=== PATIENT | female | born 1995 | race Caucasian/White ===

== ENCOUNTER 2021-01-11 13:53 | Outpatient (CLI) | payer OTHER | END 2021-01-11 13:54 | disposition critical access hospital (66) | LOC: EMS 13:53 | DX: O99.893 Other specified diseases and conditions complicating puerperium (principal); R55 Syncope and collapse | CPT/HCPCS: A0425; A0427 ==

== ENCOUNTER 2021-01-11 14:26 | Outpatient (CLI) | payer OTHER ==
[2021-01-11 14:39] VITALS: BP 123/78
--- NOTE | 2021-01-11 16:17 | PROVIDER PROGRESS NOTE ---
- HPI Chief Complaint: Other (Sycopal episode at work, three episodes today, third one she laid on floor.) Current : Vital Signs Temperature 98.4 F 01/11/21 14:37 Heart Rate 96 01/11/21 14:37 Respiratory Rate 20 01/11/21 14:37 Blood Pressure 123/78 01/11/21 14:37 O2 Saturation 100 01/11/21 14:37 Temperature 98.4 F 01/11/21 14:37 Heart Rate 96 01/11/21 14:37 Respiratory Rate 20 01/11/21 14:37 Blood Pressure 123/78 01/11/21 14:37 O2 Saturation 100 01/11/21 14:37 25 yo at 30 weeks, just moved here from [place]. Patient has history of syncopal episodes with Panic attacks, but did not have a panic attack today. Patient brought to hospital for evaluation by ambulance. Patient did not have a lot of food today, but her glucose check was 100 reported by paramedics. Patient reports good movement. Patient denies contractions. Patient de nies vaginal bleeding or SROM. Patient is scheduled to see OB at [facility] on Friday01/15/2021. Patient states her blood work was checked prior to leaving [place] and she was not anemic or diabetic. Monitor strip: Baseline 130 with moderate variability and Accelerations of 15X15. No contractions seen. Category I monitor strip. General: Patient is resting in stretcher without evidence of distress Chest: Clear to asucultatio. No rales, wheezes , or rhochi. Heart: RRR without murmur or gallop Abdomen: Soft, non-tender, good bowel sounds, Gravid, non-tender to palpation. Extremities: No edema, no calf tenderness Neuro: Alert and oriented times three. A: Syncopal episode IUP 30 week P-Discharge to home. Try to drink 64oz of water a day. Off work until she see OB clinic on Monday 01/15. Call for any problems, Keep snacks with her. Follow- up on Friday as scheduled.
== END 2021-01-11 16:15 | disposition home or self-care (01) ==
LOC: WFO 14:26 → FBP 14:35 → WFO 16:15
PROVIDERS: ATTEND Obstetrics & Gynecology
DX: O99.891 Other specified diseases and conditions complicating pregnancy (principal); R55 Syncope and collapse; Z3A.30 30 weeks gestation of pregnancy
CPT/HCPCS: 99213; 99215

== ENCOUNTER 2021-01-24 09:11 | Outpatient (CLI) | payer OTHER ==
[2021-01-24 09:17] VITALS: BP 116/80
[2021-01-24] MEDS ORDERED: LACTATED RINGERS 1,000 ML IV ONE (09:31)
[2021-01-24] MEDS ORDERED: ONDANSETRON 4 MG/2 ML VIAL IVP ONE (10:00)
--- NOTE | 2021-01-24 11:08 | HISTORY & PHYSICAL EXAMINATION ---
History and Physical - History and Physical Identification: Patient is a 25-year-old G2, P1 female who is currently 30 weeks EGA. Chief complaint passing out at work History of present illness: The patient states while at work today she developed lightheadedness lay down and then passed out. She was transported here via ambulance. She states she is eating a regular breakfast this morning her blood sugar in the ambulance was 127. She has had several episodes of being lightheaded and has been seen here in the hospital once before for a syncopal episode. She is currently been under the care of the SMUDGER physicians at our hospital. Past medical history is positive for preeclampsia with her last . Physical examination: Patient well-developed well-nourished white female she is in no acute distress at this time. She is currently have roughly half a liter of LR IV at this time. Pupils equal round extraocular muscle intact t hyroid not palpable enlarged Heart regular rate and rhythm Lung [place] clear without rales or wheezes Abdomen soft nontender gravid. Impression 25-year-old G2, P1 female at 30 weeks EGA with recurrent syncopal episodes. Giving her IV fluids. She is appointment to see her SMUDGER doctor on Friday. She is told she must maintain this appointment. I have given her the rest the day off.
--- NOTE | 2021-01-24 20:20 | PROCEDURE REPORT ---
- HPI Diagnosis/Indication for NST: Other (Syncopal episode at work.) Current EDU 03/23/21 Gestation 31 Weeks and 5 Days 2 Para 1 Vital Signs Temperature 36.8 C 01/24/21 09:17 Heart Rate 95 01/24/21 09:17 Respiratory Rate 20 01/24/21 09:17 Blood Pressure 116/80 01/24/21 09:17 O2 Saturation 100 01/24/21 09:17 Temperature 36.8 C 01/24/21 09:17 Heart Rate 95 01/24/21 09:17 Respiratory Rate 20 01/24/21 09:17 Blood Pressure 116/80 01/24/21 09:17 O2 Saturation 100 01/24/21 09:17 Patient was at work today when she became lightheaded lay down before she passed out did not impact anything. She was brought by ambulance here for evaluation. She has had previous episodes in the past. She is currently under care of the EDUCATION DEPARTMENT CHAIR physicians at [facility] - NST Procedure NST Procedure Start Date 01/24/21 Start Time 09:15 Stop Time 10:35 Vibroacoustic Stimulation Used No Patient States Movement Yes - Results and Plan Findings/Impression: Baseline was 125. She showed excellent accelerations she had good beat to beat variability she had no decelerations. She had no contractions noted throughout the entire tracing. Date of service was 01/24/2021 Plan: Will have patient hydrate. We will also have her keep her appointment with her EDUCATION DEPARTMENT CHAIR physician on Friday.
== END 2021-01-24 10:56 | disposition home or self-care (01) ==
LOC: WFO 09:11 → FBP 09:12 → WFO 10:56
PROVIDERS: ATTEND Obstetrics & Gynecology
DX: O99.891 Other specified diseases and conditions complicating pregnancy (principal); R55 Syncope and collapse; Z3A.30 30 weeks gestation of pregnancy
CPT/HCPCS: 59025; 96361; 96374; 99215; J7120; 99213

== ENCOUNTER 2021-02-06 10:02 | Outpatient (CLI) | payer OTHER | END 2021-02-06 10:03 | disposition short-term general hospital (02) | LOC: EMS 10:02 | DX: O26.893 Other specified pregnancy related conditions, third trimester (principal); R07.9 Chest pain, unspecified; R55 Syncope and collapse; Z3A.34 34 weeks gestation of pregnancy | CPT/HCPCS: A0425; A0427 ==

== ENCOUNTER 2021-08-24 09:15 | Emergency (ER) | payer OTHER ==
[2021-08-24 09:38] VITALS: BP 113/68
--- NOTE | 2021-08-24 09:41 | ED Physician Documentation ---
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 She presents to the emergency department with a chief complaint of panic attack. She has not been on medication for this previously she does see a counselor. She indicates the stressors in her life right now are that she has a new 6-month-old baby and a 2-year-old that she is taking care of at home while her is away on deployment. She does not have additional help. She continues to work. Review of Systems Constitutional: denies: Fever Eyes: denies: Decreased vision Ears: denies: Ear pain Nose: denies: Congestion Throat: denies: Sore throat Cardiac: reports: Palpitations. denies: Chest pain / pressure Respiratory: reports: Dyspnea. denies: Cough GI: reports: Nausea. denies: Abdominal Pain, Vomiting : denies: Dysuria, Frequency Skin: denies: Rash Musculoskeletal: denies: Neck pain, Back pain, Extremity pain Neurologic: denies: Generalized weakness, Focal weakness, Numbness Psychiatric: reports: Depressed, Anxiety PD PAST MEDICAL HISTORY - Past Medical History Past Medical History: No Psych: Anxiety - Past Surgical History Past Surgical History: No - Present Medications Home Medications: Ambulatory Orders Medication Instructions Recorded Confirmed hydrOXYzine pamoate [Hydroxyzine 25 mg PO Q6HR PRN #14 cap 08/24/21 Pamoate] - Allergies Allergies/Adverse Reactions: Allergies Allergy/AdvReac Type Severity Reaction Status Date / Time No Known Drug Allergies Allergy Verified 08/24/21 09:27 - Social History Does the pt smoke?: No Smoking Status: Never smoker Does the pt drink ETOH?: No Does the pt have substance abuse?: No - Immunizations Immunizations are current?: Yes PD ED PE NORMAL - Vitals Vital signs reviewed: Yes (Hypertensive) - General General: Alert and oriented X 3, Well developed/nourished, Other (Appears anxious) - HEENT HEENT: Atraumatic, PERRL, EOMI - Neck Neck: Supple, no meningeal sign, No bony TTP - Cardiac Cardiac: RRR, No murmur - Respiratory Respiratory: No respiratory distress, Clear bilaterally - Abdomen Abdomen: Normal bowel sounds, Soft, Non tender, Non distended, No organomegaly - Back Back: No CVA TTP, No spinal TTP - Derm Derm: Normal color, Warm and dry, No rash - Extremities Extremities: No deformity, No edema - Neuro Neuro: Alert and oriented X 3, order booker 2-12 intact, No motor deficit, No sensory def icit, Normal speech Eye Opening: Spontaneous Motor: Obeys Commands Verbal: Oriented GCS Score: 15 - Psych Psych: Normal mood, Normal affect Results - Vitals Vitals: Vital Signs - 24 hr 08/24/21 08/24/21 09:18 09:35 Temperature 36.2 C L Heart Rate 73 66 Respiratory 24 20 Rate Blood Pressure 134/89 H 113/68 O2 Saturation 100 100 Oxygen O2 Source Room air - Labs Labs: Laboratory Tests 08/24/21 08/24/21 08/24/21 10:11 10:25 10:25 WBC 5.1 RBC 4.85 Hgb 13.5 Hct 40.8 MCV 84.1 MCH 27.8 MCHC 33.1 RDW 13.5 Plt Count 259 MPV 10.2 Neut # (Auto) 3.0 Lymph # (Auto) 1.7 [place] # (Auto) 0.3 Eos # (Auto) 0.1 Baso # (Auto) 0.0 Absolute Nucleated RBC 0.00 Nucleated RBC % 0.0 Sodium 136 Potassium 3.9 Chloride 102 Carbon Dioxide 26 Anion Gap 8.0 BUN 9 Creatinine 0.6 Estimated GFR (MDRD) 122 Glucose 96 Calcium 8.7 Total Bilirubin 0.3 AST 13 ALT 15 Alkaline Phosphatase 63 Total Protein 7.2 Albumin 4.1 Globulin 3.1 Albumin/Globulin Ratio 1.3 Lipase 27 Urine Color YELLOW Urine Clarity CLEAR Urine pH 7.0 Ur Specific [place] 1.015 Urine Protein NEGATIVE Urine Glucose (UA) NEGATIVE Urine Ketones NEGATIVE Urine Occult Blood MODERATE H Urine Nitrite NEGATIVE Urine Bilirubin NEGATIVE Urine Urobilinogen 0.2 (NORMAL) Ur Leukocyte Esterase TRACE H Urine RBC 0-5 Urine WBC 4-5 Ur Squamous Epith Cells MOD Squamous H Urine Bacteria Few Ur Microscopic Review INDICATED Urine Culture Comments NOT INDICATED Urine HCG, Qual NEGATIVE Urine Opiates Screen NEGATIVE Ur Oxycodone Screen NEGATIVE Urine Methadone Screen NEGATIVE Ur Propoxyphene Screen NEGATIVE Ur Barbiturates Screen NEGATIVE Ur Tricyclics Screen NEGATIVE Ur Phencyclidine Scrn NEGATIVE Ur Amphetamine Screen NEGATIVE U Methamphetamines Scrn NEGATIVE U Benzodiazepines Scrn NEGATIVE Urine Cocaine Screen NEGATIVE U Cannabinoids Screen NEGATIVE Ethyl Alcohol < 5.0 PD MEDICAL DECISION MAKING - ED course Complexity details: reviewed results, re-evaluated patient, considered differential, d/w patient ED course: 26-year-old female history of panic attack reports to the emergency department with panic attack today and she is breast-feeding. She does take my offer for hydroxyzine and this appears to be effective. I have offered her hydroxyzine to be taken sparingly as it is possible to cause sedation and a breast-feeding . I discussed this with the patient and she appears confident she will be able to do this. Departure - Departure Disposition: 01 Home, Self Care Clinical Impression: Panic attack, Anxiety attack Condition: Stable Instructions: ED Stress React, ED Panic Attack Follow-Up: [facility] [Provider Group] Prescriptions: hydrOXYzine pamoate [Hydroxyzine Pamoate] 25 mg PO Q6HR PRN #14 cap PRN Reason: panic attack Comments: Nasreen, today it looks like you had a panic attack and these can be very uncomfortable. In the future if you feel a panic attack is coming on you can take some of this hydroxyzine and potentially overt this. Use this medicine sparingly as it is not recommended for breast-feeding as it can cause some sedation. At the dose you are using this should be minimal. Follow-up with your counselor as previously planned. The hydroxyzine has been e-scribed to [facility] in [place]. Forms: Activity restrictions Discharge Date/Time: 08/24/21 11:41
[2021-08-24] MEDS ORDERED: hydrOXYzine PAMOATE 25 MG CAPSULE PO STA (10:02)
[2021-08-24 10:20] LABS: MUDS CUTOFF CONCENTRATIONS CUTOFF CONC BELOW:
[2021-08-24 10:25] LABS: BILIRUBIN,URINE NEGATIVE (NEGATIVE); GLUCOSE, URINE (UA) NEGATIVE (NEGATIVE); KETONES,URINE (UA) NEGATIVE (NEGATIVE); LEUKOCYTE ESTERASE, URINE TRACE (NEGATIVE); NITRITE,URINE NEGATIVE (NEGATIVE); OCCULT BLOOD,URINE MODERATE (NEGATIVE); PROTEIN,URINE NEGATIVE (NEGATIVE); UROBILINOGEN,URINE 0.2 (NORMAL) E.U./dL (NORMAL)
[2021-08-24 10:28] LABS: HCG UR QUAL NEGATIVE
[2021-08-24 10:30] LABS: BASOPHILS % (AUTO) 0.6 %; EOSINOPHILS # (AUTO) 0.1 10^3/uL (0.0-0.7); HCT - HEMATOCRIT 40.8 % (37.0-47.0); HGB - HEMOGLOBIN 13.5 g/dL (12.0-16.0); LYMPHOCYTES # (AUTO) 1.7 10^3/uL (1.5-3.5); LYMPHOCYTES % (AUTO) 33.7 %; MEAN CORPUSCULAR HEMOGLOBIN 27.8 pg (27.0-31.0); MEAN CORPUSCULAR HGB CONC 33.1 g/dL (32.0-36.0); MEAN CORPUSCULAR VOLUME 84.1 fL (81.0-99.0); MEAN PLATELET VOLUME 10.2 fL (7.9-10.8); MONOCYTES # (AUTO) 0.3 10^3/uL (0.0-1.0); MONOCYTES % (AUTO) 5.8 %; NEUTROPHILS % (AUTO) 58.7 %; PLT - PLATELET COUNT 259 10^3/uL (130-450); RED BLOOD COUNT 4.85 10^6/uL (4.20-5.40); RED CELL DISTRIBUTION WIDTH 13.5 % (12.0-15.0); WHITE BLOOD COUNT 5.1 x10^3/uL (4.8-10.8)
[2021-08-24 10:39] LABS: CLARITY,URINE CLEAR (CLEAR)
[2021-08-24 10:40] LABS: BACTERIA,URINE Few /HPF (None Seen); RBC,URINE 0-5 /HPF (0-5); SQUAMOUS EPITHELIAL CELL,UR MOD Squamous (<= Few)
[2021-08-24 10:41] LABS: AMPHETAMINE SCREEN,URINE NEGATIVE (NEGATIVE); BARBITURATE SCREEN,UR NEGATIVE (NEGATIVE); BENZODIAZEPINES SCREEN, URINE NEGATIVE (NEGATIVE); COCAINE SCREEN URINE NEGATIVE (NEGATIVE); METHADONE SCREEN, URINE NEGATIVE (NEGATIVE); METHAMPHETAMINES SCREEN, URINE NEGATIVE (NEGATIVE); OPIATE SCREEN, URINE NEGATIVE (NEGATIVE); OXYCODONE SCREEN, URINE NEGATIVE (NEGATIVE); PROPOXYPHENE SCREEN, URINE NEGATIVE (NEGATIVE); THC CANNABINOID SCREEN, URINE NEGATIVE (NEGATIVE); TRICYCLIC ANTIDEPRESSANT,URINE NEGATIVE (NEGATIVE)
[2021-08-24 10:51] LABS: ALBUMIN 4.1 g/dL (3.2-5.5); ALBUMIN/GLOBULIN RATIO 1.3 (1.0-2.2); ALKALINE PHOSPHATASE 63 IU/L (42-121); ALT ALANINE AMINOTRANSFERASE 15 IU/L (10-60); AST ASPARTATE AMINOTRANSFERASE 13 IU/L (10-42); BILIRUBIN,TOTAL 0.3 mg/dL (0.2-1.0); BUN - BLOOD UREA NITROGEN 9 mg/dL (6-20); CALCIUM 8.7 mg/dL (8.5-10.3); CARBON DIOXIDE - CO2 26 mmol/L (21-32); CHLORIDE 102 mmol/L (101-111); CREATININE 0.6 mg/dL (0.4-1.0); ETOH - ETHANOL < 5.0 mg/dL; GFR - MDRD 122 (>89); GLUCOSE 96 mg/dL (70-100); LIPASE 27 U/L (22-51); POTASSIUM 3.9 mmol/L (3.5-5.0); SODIUM 136 mmol/L (135-145); TOTAL PROTEIN 7.2 g/dL (6.7-8.2)
== END 2021-08-24 11:41 | disposition home or self-care (01) ==
LOC: EDUNIT# → ED 09:15
DX: F41.0 Panic disorder [episodic paroxysmal anxiety] (principal)
CPT/HCPCS: 36415; 80053; 80306; 80320; 81001; 81025; 83690; 85025; 99283; 99284; A9270; 81003; 87086

== ENCOUNTER 2021-09-12 08:56 | Emergency (ER) | payer OTHER ==
[2021-09-12 09:22] LABS: GLUCOSE, URINE (UA) NEGATIVE (NEGATIVE); KETONES,URINE (UA) 40 mg/dL (NEGATIVE); LEUKOCYTE ESTERASE, URINE NEGATIVE (NEGATIVE); NITRITE,URINE NEGATIVE (NEGATIVE); OCCULT BLOOD,URINE SMALL (NEGATIVE); PH,URINE 5.5 PH (5.0-7.5); PROTEIN,URINE 30 mg/dL (NEGATIVE); UROBILINOGEN,URINE 0.2 (NORMAL) E.U./dL (NORMAL)
[2021-09-12 09:25] LABS: CLARITY,URINE CLEAR (CLEAR)
[2021-09-12] MEDS ORDERED: KETOROLAC 30 MG/ML VIAL IVP STA (09:27)
[2021-09-12] MEDS ORDERED: SODIUM CHLORIDE 0.9% 1,000 ML IV STA (09:27)
[2021-09-12 09:28] LABS: BILIRUBIN,URINE NEGATIVE (NEGATIVE); HCG UR QUAL NEGATIVE; ICTOTEST,URINE NEGATIVE
--- NOTE | 2021-09-12 09:32 | ED Physician Documentation ---
PD HPI ABD PAIN - Stated complaint Stated Complaint: L SIDE PX/FEVER - Chief complaint Chief Complaint: Abd Pain - History obtained from History obtained from: Patient - Additional information Additional information: Patient comes to the emergency department chief complaint of left sided abdominal pain and fever since yesterday. Patient states that she was doing fine the day before yesterday but then began to develop pain in her left upper quadrant throughout the course of the day. She then discovered that she had a fever of 103. She denies any back pain. No vomiting though she did have some nausea with the fever. No diarrhea. No sore throat, cough, or shortness of breath. She does have some pain under her ribs with deep breaths. No blood in her urine. She states she is otherwise healthy. No sick contacts. She states that she does feel lightheaded when she gets up. She has been drinking plenty of water, she thinks, including 2 cups already today. She does feel chilled right now states she has not been able to get warm all morning. No other complaints at this time. Review of Systems Ten Systems: 10 systems reviewed and negative Constitutional: reports: Fever, Chills Eyes: reports: Reviewed and negative Ears: reports: Reviewed and negative Nose: reports: Reviewed and negative Throat: reports: Reviewed and negative Cardiac: reports: Reviewed and negative Respiratory: reports: Reviewed and negative GI: reports: Abdominal Pain, Nausea. 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 : None HEENT: None Psych: Depression, Anxiety Musculoskeletal: None Derm: None - Past Surgical History Past Surgical History: No - Present Medications Home Medications: Ambulatory Orders Medication Instructions Recorded Confirmed hydrOXYzine pamoate [Hydroxyzine 25 mg PO Q6HR PRN #14 cap 08/24/21 09/12/21 Pamoate] HYDROcod/ACETAM 5/325 [[place]ron[place] 5/325] 1 - 2 tablet PO Q6H PRN #14 tablet 09/12/21 Ondansetron Odt [Zofran] 4 mg TL Q6H PRN #10 tablet 09/12/21 levoFLOXacin [Levaquin] 500 mg PO DAILY #10 tablet 09/12/21 metroNIDAZOLE [Flagyl] 500 mg PO BID 10 Days #20 tablet 09/12/21 - Allergies Allergies/Adverse Reactions: Allergies Allergy/AdvReac Type Severity Reaction Status Date / Time No Known Drug Allergies Allergy Verified 09/12/21 08:59 - Social History Does the pt smoke?: No Smoking Status: Never smoker Does the pt drink ETOH?: No Does the pt have substance abuse?: No - Immunizations Immunizations are current?: Yes PD ED PE NORMAL - Vitals Vital signs reviewed: Yes - General General: Alert and oriented X 3, No acute distress, Well developed/nourished - HEENT HEENT: Atraumatic, PERRL, EOMI, Moist mucous membranes - Neck Neck: Supple, no meningeal sign - Cardiac Cardiac: No murmur, Strong equal pulses, Other (Tachycardic in the 110's, regular rhythm, no murmurs.) - Respiratory Respiratory: No respiratory distress, Clear bilaterally - Abdomen Abdomen: Soft, Non distended, Other (Marked left upper and lower quadrant tenderness. No rebound or guarding. Patient becomes tearful when abdomen is palpated on that side.) - Back Back: Other (Mild left CVA tenderness) - Derm Derm: Normal color, Warm and dry, No rash - Extremities Extremities: No deformity, No edema, No calf tenderness / cord - Neuro Neuro: Alert and oriented X 3, clinical courier 2-12 intact, No motor deficit, No sensory deficit, Normal speech - Psych Psych: Normal mood, Normal affect Results - Vitals Vitals: Vital Signs - 24 hr 09/12/21 09/12/21 09/12/21 08:59 10:13 10:48 Temperature 36.9 C 37.2 C Heart Rate 111 H 98 86 Respiratory 20 15 26 H Rate Blood Pressure 138/72 H 109/65 106/69 O2 Saturation 97 97 100 09/12/21 09/12/21 09/12/21 12:00 12:29 12:36 Temperature 36.8 C Heart Rate 79 88 72 Respiratory 17 20 18 Rate Blood Pressure 96/61 109/77 106/57 L O2 Saturation 100 100 100 Oxygen O2 Source Room air - Labs Labs: Laboratory Tests 09/12/21 09/12/21 09/12/21 09:10 09:18 09:18 WBC 12.0 H RBC 4.88 Hgb 13.5 Hct 40.7 MCV 83.4 MCH 27.7 MCHC 33.2 RDW 13.2 Plt Count 222 MPV 10.9 H Neut # (Auto) 9.0 H Lymph # (Auto) 1.7 [place] # (Auto) 1.0 Eos # (Auto) 0.2 Baso # (Auto) 0.0 Absolute Nucleated RBC 0.00 Nucleated RBC % 0.0 Manual Slide Review Indicated RBC Morph Micro Appear 2+ ANISOCYTOSIS Sodium 135 Potassium 3.4 L Chloride 100 L Carbon Dioxide 23 Anion Gap 12.0 BUN 8 Creatinine 0.6 Estimated GFR (MDRD) 122 Glucose 96 Calcium 8.9 Total Bilirubin 1.1 H AST 18 ALT 22 Alkaline Phosphatase 61 Total Protein 7.9 Albumin 4.0 Globulin 3.9 Albumin/Globulin Ratio 1.0 Lipase 26 Urine Color DARK YELLOW Urine Clarity CLEAR Urine pH 5.5 Ur Specific [place] >=1.030 H Urine Protein 30 H Urine Glucose (UA) NEGATIVE Urine Ketones 40 H Urine Occult Blood SMALL H Urine Nitrite NEGATIVE Urine Bilirubin NEGATIVE Urine Urobilinogen 0.2 (NORMAL) Ur Leukocyte Esterase NEGATIVE Urine RBC 0-5 Urine WBC 4-5 Ur Squamous Epith Cells FEW Squamous Urine Bacteria Moderate H Ur Microscopic Review INDICATED Urine Culture Comments NOT INDICATED Urine HCG, Qual NEGATIVE Nasal Adenovirus (PCR) Nasal B. parapertussis DNA (PCR) Nasal Coronavir 229E PCR Nasal Coronavir HKU1 PCR Nasal Coronavir NL63 PCR Nasal Coronavir OC43 PCR Nasal Enterovir/Rhinovir PCR Nasal Influenza B PCR Nasal Influenza A PCR Nasal Parainfluen 1 PCR Nasal Parainfluen 2 PCR Nasal Parainfluen 3 PCR Nasal Parainfluen 4 PCR Nasal RSV (PCR) Nasal B.pertussis DNA PCR Nasal C.pneumoniae (PCR) Curry Human Metapneumo PCR Nasal M.pneumoniae (PCR) Nasal SARS-CoV-2 (PCR) 09/12/21 09:32 WBC RBC Hgb Hct MCV MCH MCHC RDW Plt Count MPV Neut # (Auto) Lymph # (Auto) [place] # (Auto) Eos # (Auto) Baso # (Auto) Absolute Nucleated RBC Nucleated RBC % Manual Slide Review RBC Morph Micro Appear Sodium Potassium Chloride Carbon Dioxide Anion Gap BUN Creatinine Estimated GFR (MDRD) Glucose Calcium Total Bilirubin AST ALT Alkaline Phosphatase Total Protein Albumin Globulin Albumin/Globulin Ratio Lipase Urine Color Urine Clarity Urine pH Ur Specific [place] Urine Protein Urine Glucose (UA) Urine Ketones Urine Occult Blood Urine Nitrite Urine Bilirubin Urine Urobilinogen Ur Leukocyte Esterase Urine RBC Urine WBC Ur Squamous Epith Cells Urine Bacteria Ur Microscopic Review Urine Culture Comments Urine HCG, Qual Nasal Adenovirus (PCR) NOT DETECTED Nasal B. parapertussis DNA (PCR) NOT DETECTED Nasal Coronavir 229E PCR NOT DETECTED Nasal Coronavir HKU1 PCR NOT DETECTED Nasal Coronavir NL63 PCR NOT DETECTED Nasal Coronavir OC43 PCR NOT DETECTED Nasal Enterovir/Rhinovir PCR DETECTED A Nasal Influenza B PCR NOT DETECTED Nasal Influenza A PCR NOT DETECTED Nasal Parainfluen 1 PCR NOT DETECTED Nasal Parainfluen 2 PCR NOT DETECTED Nasal Parainfluen 3 PCR NOT DETECTED Nasal Parainfluen 4 PCR NOT DETECTED Nasal RSV (PCR) NOT DETECTED Nasal B.pertussis DNA PCR NOT DETECTED Nasal C.pneumoniae (PCR) NOT DETECTED Curry Human Metapneumo PCR NOT DETECTED Nasal M.pneumoniae (PCR) NOT DETECTED Nasal SARS-CoV-2 (PCR) NOT DETECTED - Rads (name of study) CT abd/pelvis Radiology: Final report received, EMP read indepedently, See rad report (colitis and possible diverticulitis of descending colon. No perforation. ) CXR Radiology: Final report received, EMP read indepedently, See rad report (neg) PD MEDICAL DECISION MAKING - ED course Complexity details: reviewed results, re-evaluated patient, considered differential, d/w patient ED course: The patient was given a liter 0.9 normal saline and worked up with labs, urinalysis, chest x-ray, and PCR. These were negative, except for PCR showing adenovirus. The pt's abdomen was quite tender, and I felt it was unlikely that the adenovirus would explain the pt's height of fever, so CT abd/pelvis was ordered. This showed colitis with the appearance of likely diverticulitis. Pt was started on abx in the ED, and given a prescription for the same. We have discussed home management of the sx, as well as the usual indications for return. Departure - Departure Disposition: 01 Home, Self Care Clinical Impression: Diverticulitis, Colitis Condition: Stable Instructions: ED Diverticulitis Prescriptions: metroNIDAZOLE [Flagyl] 500 mg PO BID 10 Days #20 tablet levoFLOXacin [Levaquin] 500 mg PO DAILY #10 tablet HYDROcod/ACETAM 5/325 [Trona 5/325] 1 - 2 tablet PO Q6H PRN #14 tablet PRN Reason: Pain Ondansetron Odt [Zofran] 4 mg TL Q6H PRN #10 tablet PRN Reason: Nausea / Vomiting Comments: Your CT scan showed inflammation of your large intestinal wall, which is most likely coming from a clogged diverticulum, or "pouch" that protrudes from the wall of your large intestine. As we discussed, these can sometimes become impacted with stool and this could cause bacteria to fester. This is most likely the cause of your fever and certainly the cause of your pain. You have been started on antibiotics for this here in the emergency department. Your viral panel was also positive for one of the common upper respiratory viruses, and while it is possible that this could be causing your fever it is unlikely. You will most likely take several days before you are feeling better, and should continue the antibiotic course until this completely gone. If you find after the first several days of antibiotics that your pain and fevers are worsening, then you should be rechecked. Your prescriptions have been electronically transmitted to [facility] in [place], which is your pharmacy on record. Forms: Activity restrictions Discharge Date/Time: 09/12/21 12:51
[2021-09-12 09:38] LABS: BASOPHILS % (AUTO) 0.3 %; EOSINOPHILS # (AUTO) 0.2 10^3/uL (0.0-0.7); EOSINOPHILS % (AUTO) 1.9 %; HCT - HEMATOCRIT 40.7 % (37.0-47.0); HGB - HEMOGLOBIN 13.5 g/dL (12.0-16.0); LYMPHOCYTES # (AUTO) 1.7 10^3/uL (1.5-3.5); LYMPHOCYTES % (AUTO) 14.3 %; MEAN CORPUSCULAR HEMOGLOBIN 27.7 pg (27.0-31.0); MEAN CORPUSCULAR HGB CONC 33.2 g/dL (32.0-36.0); MEAN CORPUSCULAR VOLUME 83.4 fL (81.0-99.0); MEAN PLATELET VOLUME 10.9 fL (7.9-10.8); MONOCYTES % (AUTO) 7.9 %; NEUTROPHILS % (AUTO) 75.3 %; PLT - PLATELET COUNT 222 10^3/uL (130-450); RED BLOOD COUNT 4.88 10^6/uL (4.20-5.40); RED CELL DISTRIBUTION WIDTH 13.2 % (12.0-15.0)
[2021-09-12 09:40] LABS: SLIDE REVIEW? Indicated
[2021-09-12 09:44] LABS: BACTERIA,URINE Moderate /HPF (None Seen); RBC,URINE 0-5 /HPF (0-5); SQUAMOUS EPITHELIAL CELL,UR FEW Squamous (<= Few)
[2021-09-12 09:45] LABS: BILIRUBIN,TOTAL 1.1 mg/dL (0.2-1.0); CALCIUM 8.9 mg/dL (8.5-10.3); CREATININE 0.6 mg/dL (0.4-1.0); POTASSIUM 3.4 mmol/L (3.5-5.0); TOTAL PROTEIN 7.9 g/dL (6.7-8.2)
--- NOTE | 2021-09-12 09:58 | XRAY Report ---
PROCEDURE: Chest 1 View X-Ray INDICATIONS: fever/pain TECHNIQUE: One view of the chest was acquired. COMPARISON: None FINDINGS: Surgical changes and devices: None. Lungs and pleura: No pleural effusions or pneumothorax. Lungs are clear. Mediastinum: Mediastinal contours appear normal. Heart size is normal. Bones and chest wall: No suspicious bony lesions. Overlying soft tissues appear unremarkable. IMPRESSION: No acute process. Reviewed by: Louis Osorio MD on 09/12/2021 9:57 AM PDT Approved by: Louis Osorio MD on 09/12/2021 9:57 AM PDT Station ID: [id number]
[2021-09-12] MEDS ORDERED: ONDANSETRON 4 MG/2 ML VIAL IVP STA (10:00)
[2021-09-12] MEDS ORDERED: HYDROmorphone 0.5 MG/0.5 ML SYRINGE IVP STA ×2 (10:00→11:46)
[2021-09-12 10:05] LABS: RBC MORPHOLOGY (MULTIPLE) 2+ ANISOCYTOSIS (NORMAL)
[2021-09-12] MEDS ORDERED: IOVERSOL 320 100 ML VIAL IVP ONE ×2 (10:26→14:27)
[2021-09-12 10:42] LABS: B. PARAPERTUSSIS- RESP PCR PAN NOT DETECTED; B. PERTUSSIS- RESP PCR PANEL NOT DETECTED; C. PNEUMONIAE- RESP PCR PANEL NOT DETECTED; CORONAVIRUS 229E-RESP PCR NOT DETECTED; CORONAVIRUS HKU1-RESP PCR NOT DETECTED; CORONAVIRUS NL63-RESP PCR NOT DETECTED; CORONAVIRUS OC43-RESP PCR NOT DETECTED; HUMAN METAPNEUMOVIRUS NOT DETECTED; INFLUENZA A- RESP PCR PANEL NOT DETECTED; INFLUENZA B - RESP PCR PANEL NOT DETECTED; M. PNEUMONIAE- RESP PCR PANEL NOT DETECTED; PARAINFLUENZA VIRUS 1 NOT DETECTED; PARAINFLUENZA VIRUS 2 NOT DETECTED; PARAINFLUENZA VIRUS 3 NOT DETECTED; PARAINFLUENZA VIRUS 4 NOT DETECTED; RHINOVIRUS/ENTEROVIRUS DETECTED; RSV- RESP PCR PANEL NOT DETECTED; SARS-CoV-2 -RESP PCR PANEL NOT DETECTED
[2021-09-12] MEDS ORDERED: PROMETHAZINE INJ 25 MG in SODIUM CHLORIDE 0.9% 50 ML IV STA (11:46)
--- NOTE | 2021-09-12 12:09 | CT Report ---
PROCEDURE: Abdomen/Pelvis W INDICATIONS: LLQ pain/tenderness, fever CONTRAST: IV CONTRAST: Optiray 320 ml: 100 PO CONTRAST: *NO PO CONTRAST TECHNIQUE: After the administration of IV contrast, 5 mm thick sections acquired from the diaphragms to the symp hysis. 5 mm thick coronal and sagittal reformats were acquired. For radiation dose reduction, the f ollowing was used: automated exposure control, adjustment of mA and/or kV according to patient size. COMPARISON: None. FINDINGS: Image quality: Excellent. ABDOMEN: Lung bases: Lung bases are clear. Heart size is normal. Solid organs: Liver and spleen are normal in size and enhancement. Gallbladder is normal. Biliary system is non dilated. Pancreas enhances normally. No adrenal nodules. Kidneys demonstrate normal size and enhancement, without hydronephrosis. Peritoneum and bowel: Moderate pericolonic fat stranding and edema in the left upper quadrant surrou nding the splenic flexure colon. There are a few diverticula in the area. The distal colon is decompr essed. Small and large bowel loops are otherwise nonobstructed. There are noninflamed diverticula in the distal descending colon trace fluid in the pelvis, but no fluid in the paracolic gutters. No free air. Nodes and vessels: No retroperitoneal or mesenteric adenopathy by size criteria. Aorta and inferior vena cava are normal in size. Miscellaneous: No ventral hernias. PELVIS: Genitourinary: The urinary bladder is partially distended and has a normal wall thickness. The uterus is anteverted. There is a peripherally hypervascular cystic structure in the left ovary, likely addie us luteum. The right ovary appears normal. Miscellaneous: No inguinal hernias or adenopathy. Bones: No suspicious bony lesions. No vertebral body compression fractures. IMPRESSION: 1. Focal colitis at the splenic flexure, possibly diverticulitis though discrete inflamed diverticulu m is not present. There is no evidence of rupture or abscess. 2. There is occasional diverticulosis elsewhere in the colon. 3. No small bowel obstruction. 4. There is a left ovarian peripherally vascular corpus luteum. Trace free fluid in the pelvis is mos t likely physiologic. Reviewed by: Dary Montenegro MD on 09/12/2021 12:08 PM PDT Approved by: Dary Montenegro MD on 09/12/2021 12:08 PM PDT Station ID: [id number]
[2021-09-12] MEDS ORDERED: metroNIDAZOLE 250 MG TABLET PO STA (12:13)
[2021-09-12] MEDS ORDERED: levoFLOXacin 250 MG TABLET PO STA (12:13)
[2021-09-12 12:37] VITALS: BP 106/57
== END 2021-09-12 12:51 | disposition home or self-care (01) ==
LOC: ED 08:56
DX: K57.92 Diverticulitis of intestine, part unspecified, without perforation or abscess without bleeding (principal); K52.9 Noninfective gastroenteritis and colitis, unspecified; Z20.822 Contact with and (suspected) exposure to COVID-19
CPT/HCPCS: 0202U; 36415; 71045; 74177; 80053; 81001; 81025; 83690; 85025; 87040; 96365; 96375; 96376; 99283; 99284; A9270; J1170; J7040; Q9967; 81003; 87086

== ENCOUNTER 2021-09-15 15:46 | Emergency (ER) | payer OTHER ==
[2021-09-15] MEDS ORDERED: SODIUM CHLORIDE 0.9% 1,000 ML IV STA ×2 (15:55→16:01)
--- NOTE | 2021-09-15 16:02 | ED Physician Documentation ---
History of Present Illness - Stated complaint Stated Complaint: PASSED OUT/SHAKY/LIGHT HEADED - Additonal information Additional information: 26-year-old female presents emergency department for evaluation of worsening left-sided abdominal pain as well as 3 syncopal episodes today. She does self endorse a history of anxiety and panic attacks. She has syncopized with panic attacks in the past but denies that she was having one today. However she does report that she "passes out all the time." Her blood glucose was 97 on arrival to the emergency department. She had a fainting episode at home. She called her friend to come take her to the emergency department. She had another brief lapse in consciousness when her friend arrived at the house. And she also had a lapse in consciousness while in our waiting room. The lapses in consciousness are for a few seconds (10-15) only and not sustained. There was no reports of seizure-like or clonic activity. No loss of bowel or bladder function Seen here on 12 September for left-sided abdominal pain CT scan showed likely col itis or diverticulitis of the descending colon. Patient was started on Levaquin and Flagyl. Despite taking these medications she reports that the abdominal pain is worse. She is also not had a bowel movement. She states she is not passing gas either. There have been no fevers since the . No dysuria. No chest pain or shortness of air. 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 : None HEENT: None Psych: Depression, Anxiety Musculoskeletal: None Derm: None - Past Surgical History Past Surgical History: No - Present Medications Home Medications: Ambulatory Orders Medication Instructions Recorded Confirmed hydrOXYzine pamoate [Hydroxyzine 25 mg PO Q6HR PRN #14 cap 08/24/21 09/15/21 Pamoate] HYDROcod/ACETAM 5/325 [Erin 5/325] 1 - 2 tablet PO Q6H PRN #14 tablet 09/12/21 09/15/21 Ondansetron Odt [Zofran] 4 mg TL Q6H PRN #10 tablet 09/12/21 09/15/21 levoFLOXacin [Levaquin] 500 mg PO DAILY #10 tablet 09/12/21 09/15/21 metroNIDAZOLE [Flagyl] 500 mg PO BID 10 Days #20 tablet 09/12/21 09/15/21 - Allergies Allergies/Adverse Reactions: Allergies Allergy/AdvReac Type Severity Reaction Status Date / Time No Known Drug Allergies Allergy Verified 09/15/21 15:57 - Social History Does the pt smoke?: No Smoking Status: Never smoker Does the pt drink ETOH?: No Does the pt have substance abuse?: No - Immunizations Immunizations are current?: Yes PD ED PE EXPANDED - General General: Alert, Other (pale) - Neck Neck: Supple w/out meningeal sx - Cardiac Cardiac: Regular Rate, Radial strong equal, Pedal strong equal, Cap refill < 2 sec - Respiratory Respiratory: Clear to ausultation domonique. No: Distress, Labored - Abdomen Abdomen: Normal Bowel sounds, Tender to palpation (Tenderness to the left lower quadrant with some guarding and rebound. No right-sided or CVA tenderness elicited) - Derm Derm: Normal color, Warm and dry. No: Rash - Extremities Extremities: Normal. No: Deformity, Tenderness - Neuro Neuro: Alert and Oriented X 3, CNII-XII intact, Normal finger nose - GCS Eye Opening: Spontaneous Motor: Obeys Commands Verbal: Oriented Total: 15 Results - Vitals Vitals: Vital Signs - 24 hr 09/15/21 09/15/21 09/15/21 15:47 15:50 16:00 Temperature 37.0 C Heart Rate 79 88 96 Heart Rate [ Sitting] Heart Rate [ Standing] Heart Rate [ Supine] Respiratory 14 24 18 Rate Blood Pressure 154/66 H 149/84 H 141/93 H Blood Pressure [Sitting] Blood Pressure [Supine] O2 Saturation 98 100 100 09/15/21 09/15/21 09/15/21 16:10 16:20 16:33 Temperature Heart Rate 88 105 H 78 Heart Rate [ Sitting] Heart Rate [ Standing] Heart Rate [ Supine] Respiratory 16 30 H 16 Rate Blood Pressure 131/78 H 147/97 H 141/93 H Blood Pressure [Sitting] Blood Pressure [Supine] O2 Saturation 100 100 100 09/15/21 09/15/21 09/15/21 17:03 17:30 17:51 Temperature Heart Rate 84 78 Heart Rate [ 119 H Sitting] Heart Rate [ 108 H Standing] Heart Rate [ 84 Supine] Respiratory 18 14 Rate Blood Pressure 136/84 H 122/89 H Blood Pressure 168/108 H [Sitting] Blood Pressure 136/96 H [Supine] O2 Saturation 98 99 09/15/21 09/15/21 18:00 18:30 Temperature Heart Rate 78 74 Heart Rate [ Sitting] Heart Rate [ Standing] Heart Rate [ Supine] Respiratory 16 16 Rate Blood Pressure 124/94 H 132/99 H Blood Pressure [Sitting] Blood Pressure [Supine] O2 Saturation 98 98 Oxygen O2 Source Room air - EKG (time done) 1547 Rate: Rate (enter#) (76) Rhythm: NSR Hondo: Normal Intervals: Normal [place] QRS: Normal Ischemia: Normal ST segments Compare to prior EKG: Old EKG unavailable Computer interpretation: Agree with computer - Labs Labs: Laboratory Tests 09/15/21 09/15/21 09/15/21 15:51 15:55 15:55 WBC 6.1 RBC 4.86 Hgb 13.2 Hct 40.9 MCV 84.2 MCH 27.2 MCHC 32.3 RDW 13.0 Plt Count 303 MPV 10.0 Neut # (Auto) 2.8 Lymph # (Auto) 2.7 Woodward # (Auto) 0.4 Eos # (Auto) 0.1 Baso # (Auto) 0.0 Absolute Nucleated RBC 0.00 Nucleated RBC % 0.0 Sodium 138 Potassium 3.7 Chloride 103 Carbon Dioxide 25 Anion Gap 10.0 BUN 9 Creatinine 0.6 Estimated GFR (MDRD) 122 Glucose 99 POC Whole Bld Glucose 97 Lactic Acid Calcium 9.6 Phosphorus Magnesium Total Bilirubin 0.4 AST 15 ALT 16 Alkaline Phosphatase 58 Troponin I High Sens Total Protein 7.5 Albumin 3.8 Globulin 3.7 Albumin/Globulin Ratio 1.0 Lipase 27 Serum HCG, Qual Urine Color Urine Clarity Urine pH Ur Specific Comstock Urine Protein Urine Glucose (UA) Urine Ketones Urine Occult Blood Urine Nitrite Urine Bilirubin Urine Urobilinogen Ur Leukocyte Esterase Urine RBC Urine WBC Ur Squamous Epith Cells Urine Bacteria Ur Microscopic Review Urine Culture Comments 09/15/21 09/15/21 09/15/21 15:55 15:55 15:55 WBC RBC Hgb Hct MCV MCH MCHC RDW Plt Count MPV Neut # (Auto) Lymph # (Auto) Woodward # (Auto) Eos # (Auto) Baso # (Auto) Absolute Nucleated RBC Nucleated RBC % Sodium Potassium Chloride Carbon Dioxide Anion Gap BUN Creatinine Estimated GFR (MDRD) Glucose POC Whole Bld Glucose Lactic Acid 1.8 Calcium Phosphorus Magnesium Total Bilirubin AST ALT Alkaline Phosphatase Troponin I High Sens < 2.3 L Total Protein Albumin Globulin Albumin/Globulin Ratio Lipase Serum HCG, Qual NEGATIVE Urine Color Urine Clarity Urine pH Ur Specific Comstock Urine Protein Urine Glucose (UA) Urine Ketones Urine Occult Blood Urine Nitrite Urine Bilirubin Urine Urobilinogen Ur Leukocyte Esterase Urine RBC Urine WBC Ur Squamous Epith Cells Urine Bacteria Ur Microscopic Review Urine Culture Comments 09/15/21 09/15/21 15:55 17:03 WBC RBC Hgb Hct MCV MCH MCHC RDW Plt Count MPV Neut # (Auto) Lymph # (Auto) Woodward # (Auto) Eos # (Auto) Baso # (Auto) Absolute Nucleated RBC Nucleated RBC % Sodium Potassium Chloride Carbon Dioxide Anion Gap BUN Creatinine Estimated GFR (MDRD) Glucose POC Whole Bld Glucose Lactic Acid Calcium Phosphorus 3.9 Magnesium 2.0 Total Bilirubin AST ALT Alkaline Phosphatase Troponin I High Sens Total Protein Albumin Globulin Albumin/Globulin Ratio Lipase Serum HCG, Qual Urine Color YELLOW Urine Clarity HAZY Urine pH 5.5 Ur Specific Comstock <=1.005 Urine Protein NEGATIVE Urine Glucose (UA) NEGATIVE Urine Ketones NEGATIVE Urine Occult Blood LARGE H Urine Nitrite NEGATIVE Urine Bilirubin NEGATIVE Urine Urobilinogen 0.2 (NORMAL) Ur Leukocyte Esterase NEGATIVE Urine RBC 11-25 H Urine WBC 0-3 Ur Squamous Epith Cells NONE SEEN Urine Bacteria None Seen Ur Microscopic Review INDICATED Urine Culture Comments NOT INDICATED - Rads (name of study) cxr Radiology: Final report received (No acute cardiopulmonary process) CT pulmonary angio Radiology: Final report received (No evidence of pulmonary embolism, aortic dissection or aneurysm. Incidental left upper lobe calcified granuloma) CT abd/pelvis Radiology: Final report received (Nearly resolved colitis or diverticulitis at the splenic flexure. No abscess. Moderate fecal debris throughout the colon) PD MEDICAL DECISION MAKING - ED course Complexity details: reviewed results, re-evaluated patient, considered differential, d/w patient ED course: 26-year-old female presents emergency department for evaluation of 3 syncopal events that occurred this morning. Seen at this hospital on 12 September and diagnosed with a colitis/diverticulitis. Started on Levaquin and Flagyl. Despite this she reports worsening pain in the lower part of her abdomen. She does have a history of fainting and does state that her episodes are becoming more frequent. She states that these fainting episodes of felt very different and she was not having panic or worry. We did obtain screening labs which were essentially on remarkable. Her troponin was negative. Her EKG was without any ischemic abnormality or arrhythmia. While here in the emergency department she has not had any noted arrhythmia or ectopy. We do note she develops brief tachycardia when going from supine to a sitting position. CT pulmonary angio of the chest was without findings of PE, aneurysm or dissection. The CT of her abdomen pelvis showed a resolving colitis/diverticulitis. 1745: We did attempt orthostatic blood pressures however it was not well- tolerated by the patient. She was normotensive and had a normal heart rate when laying completely supine. When we sat her up in bed her heart rate briefly increased to about 120 and after about 5 seconds she syncopized. Her heart rate did slowly decline into the 90s and she was noted to be hypertensive. However she never fully regained consciousness. When she seemed somewhat more alert we did attempt to stand her but again she could not stand at all and was promptly returned to bed. Thus this is a 26-year-old female who has recurrent syncope and is unable to maintain even a sitting position. She certainly needs further evaluation that likely includes tilt table testing, and/or evaluation by neurology and cardiology. Unfortunately we do not have those services here at [facility] and will have to search for an accepting bed in facility elsewhere. [id number]: I spoken with Dr. Almeida a neurologist at [facility]. We discussed the case. She does not feel that the cause of syncope is neurological as the patient does not get hypotensive during her fainting spells. She feels its not likely to be orthostasis or pots syndrome. I then discussed the case with Dr. Ambriz cardiology at [facility]. He suspects that the patient may be dehydrated though we have given her 2 L of crystalloid without a change in symptoms. In any event he does feel that the patient is appropriate for transfer. I then discussed the case with Gabi Griggs nurse practitioner at [facility] and the patient is accepted in transfer. She will be sent via [facility] for cardiac monitoring. Appropriate COBRA paperwork filled out. The patient is aware of the plan to transfer and is in agreement Departure - Departure Disposition: 02 Transfer Acute Care Hosp Clinical Impression: Recurrent syncope, Orthostasis Condition: Stable Record reviewed to determine appropriate education?: Yes
[2021-09-15 16:04] LABS: BASOPHILS % (AUTO) 0.7 %; EOSINOPHILS # (AUTO) 0.1 10^3/uL (0.0-0.7); EOSINOPHILS % (AUTO) 2.3 %; HCT - HEMATOCRIT 40.9 % (37.0-47.0); HGB - HEMOGLOBIN 13.2 g/dL (12.0-16.0); LYMPHOCYTES # (AUTO) 2.7 10^3/uL (1.5-3.5); LYMPHOCYTES % (AUTO) 44.1 %; MEAN CORPUSCULAR HEMOGLOBIN 27.2 pg (27.0-31.0); MEAN CORPUSCULAR HGB CONC 32.3 g/dL (32.0-36.0); MEAN CORPUSCULAR VOLUME 84.2 fL (81.0-99.0); MONOCYTES # (AUTO) 0.4 10^3/uL (0.0-1.0); MONOCYTES % (AUTO) 6.5 %; NEUTROPHILS # (AUTO) 2.8 10^3/uL (1.5-6.6); NEUTROPHILS % (AUTO) 46.2 %; PLT - PLATELET COUNT 303 10^3/uL (130-450); RED BLOOD COUNT 4.86 10^6/uL (4.20-5.40); WHITE BLOOD COUNT 6.1 x10^3/uL (4.8-10.8)
[2021-09-15] MEDS ORDERED: IOVERSOL 320 100 ML VIAL IVP ONE ×2 (16:17→17:00)
[2021-09-15] MEDS ORDERED: LORazepam 2 MG/ML VIAL IVP STA (16:26)
[2021-09-15 16:29] LABS: ALBUMIN 3.8 g/dL (3.2-5.5); BILIRUBIN,TOTAL 0.4 mg/dL (0.2-1.0); CALCIUM 9.6 mg/dL (8.5-10.3); CREATININE 0.6 mg/dL (0.4-1.0); POTASSIUM 3.7 mmol/L (3.5-5.0); TOTAL PROTEIN 7.5 g/dL (6.7-8.2)
[2021-09-15] MEDS ORDERED: HYDROmorphone 1 MG/ML CARPUJECT IVP STA (16:31)
[2021-09-15 16:36] LABS: HCG,QUALITATIVE BLOOD NEGATIVE
--- NOTE | 2021-09-15 16:41 | XRAY Report ---
PROCEDURE: Chest 1 View X-Ray INDICATIONS: syncope TECHNIQUE: One view of the chest was acquired. COMPARISON: 09/12/2021 FINDINGS: Surgical changes and devices: None. Lungs and pleura: No pleural effusions or pneumothorax. Lungs are clear. Mediastinum: Mediastinal contours appear normal. Heart size is normal. Bones and chest wall: No suspicious bony lesions. Overlying soft tissues appear unremarkable. IMPRESSION: No acute cardiac pulmonary findings. No change from the prior. Reviewed by: Marquez Rivera MD on 09/15/2021 3:39 PM AKDT Approved by: Marquez Rivera MD on 09/15/2021 3:39 PM AKDT Station ID: [id number]
[2021-09-15 17:09] LABS: BILIRUBIN,URINE NEGATIVE (NEGATIVE); GLUCOSE, URINE (UA) NEGATIVE (NEGATIVE); KETONES,URINE (UA) NEGATIVE (NEGATIVE); LEUKOCYTE ESTERASE, URINE NEGATIVE (NEGATIVE); NITRITE,URINE NEGATIVE (NEGATIVE); OCCULT BLOOD,URINE LARGE (NEGATIVE); PH,URINE 5.5 PH (5.0-7.5); PROTEIN,URINE NEGATIVE (NEGATIVE); UROBILINOGEN,URINE 0.2 (NORMAL) E.U./dL (NORMAL)
--- NOTE | 2021-09-15 17:12 | CT Report ---
PROCEDURE: CT abdomen and pelvis with contrast INDICATIONS: Multiple episodes of syncope. Recent diverticulit CONTRAST: IV CONTRAST: Optiray 320 ml: 100 PO CONTRAST: *NO PO CONTRAST TECHNIQUE: After the administration of contrast, 5 mm thick sections acquired from the diaphragms to the sym physis. 5 mm thick coronal and sagittal reformats were acquired. For radiation dose reduction, the following was used: automated exposure control, adjustment of mA and/or kV according to patient size . COMPARISON: None. FINDINGS: Image quality: Excellent. ABDOMEN: Lung bases: Lung bases are clear. Heart size is normal. Solid organs: Liver and spleen are normal in size and enhancement. Gallbladder unremarkable Biliar y system is non dilated. Pancreas enhances normally. No adrenal nodules. Kidneys demonstrate roxanna l size and enhancement, without hydronephrosis. Peritoneum and bowel: Mild inflammatory change around the splenic flexure is nearly resolved. Modera te to fecal debris throughout the colon present. No free fluid in pelvis. Bowel loops demonstrate nor mal wall thickness and caliber. No free fluid or air. Nodes and vessels: No retroperitoneal or mesenteric adenopathy by size criteria. Aorta and inferior vena cava are normal in size. Miscellaneous: No ventral hernias. PELVIS: Genitourinary: Bladder wall thickness is normal. Miscellaneous: No inguinal hernias or adenopathy. Bones: No suspicious bony lesions. No vertebral body compression fractures. IMPRESSION: 1. Nearly resolved colitis or diverticulitis at the splenic flexure. No abscess. 2. Moderate to fecal debris throughout the colon. Reviewed by: Marquez Rivera MD on 09/15/2021 4:10 PM AKDT Approved by: Marquez Rivera MD on 09/15/2021 4:10 PM AKDT Station ID: [id number]
--- NOTE | 2021-09-15 17:15 | CT Report ---
PROCEDURE: CT chest angiogram with contrast INDICATIONS: recurrent syncope CONTRAST: IV CONTRAST: Optiray 320 ml: 100 PO CONTRAST: *NO PO CONTRAST TECHNIQUE: Helical axial CT of the chest was obtained after intravenous contrast administration util izing an angiographic protocol. Images were reformatted in multiple planes. For radiation dose reduct ion, the following was used: automated exposure control, adjustment of mA and/or kV according to rachel ent size. COMPARISON: None FINDINGS: Image quality: Excellent. Pulmonary arteries: Pulmonary arteries are normal in size, and demonstrate no intraluminal filling d efects to suggest central pulmonary embolism. Lungs and pleura: Lungs are clear. No pleural effusions or pneumothorax. Central and peripheral ai rways are patent. The left upper lobe calcified granuloma noted. Mediastinum: Heart size is normal, without pericardial effusion. No mediastinal or hilar adenopathy . Thoracic aorta is normal in caliber and enhancement. Esophagus is normal in caliber, without hiat al hernia. Bones and chest wall: No suspicious bony lesions. Ribs and thoracic spine appear intact throughout. No axillary or supraclavicular adenopathy. The thyroid is normal in size and there are no incident al findings. Abdomen: Visualized upper abdominal solid organs appear normal in th early arterial phase of enhance ment. IMPRESSION: No evidence of pulmonary embolism, aortic dissection or aneurysm Incidental left upper lobe calcified granuloma Reviewed by: Marquez Rivera MD on 09/15/2021 4:14 PM AKDT Approved by: Marquez Rivera MD on 09/15/2021 4:14 PM AKDT Station ID: [id number]
[2021-09-15 17:17] LABS: CLARITY,URINE HAZY (CLEAR)
[2021-09-15 17:24] LABS: BACTERIA,URINE None Seen /HPF (None Seen); SQUAMOUS EPITHELIAL CELL,UR NONE SEEN (<= Few); WBC,URINE 0-3 /HPF (0-5)
[2021-09-15 18:29] LABS: PHOSPHORUS 3.9 mg/dL (2.5-4.6)
[2021-09-15 20:37] VITALS: BP 107/74
== END 2021-09-15 20:55 | disposition short-term general hospital (02) ==
LOC: ED 15:46
DX: I95.1 Orthostatic hypotension (principal); Z20.822 Contact with and (suspected) exposure to COVID-19
CPT/HCPCS: 36415; 71045; 71275; 74177; 80053; 81001; 83605; 83690; 83735; 84100; 84484; 84703; 85025; 87040; 87150; 87181; 87635; 93005; 96361; 96374; 99284; 99285; J1170; Q9967; 81003; 87086

== ENCOUNTER 2021-09-15 20:59 | Outpatient (CLI) | payer OTHER | END 2021-09-15 21:00 | disposition short-term general hospital (02) | LOC: EMS 20:59 | PROVIDERS: ATTEND Registered Nurse | DX: R55 Syncope and collapse (principal); R42 Dizziness and giddiness | CPT/HCPCS: A0425; A0428 ==